=== PATIENT | male | born 1985 | race Hispanic/Latino ===

== ENCOUNTER → 2023-09-10 | Emergency (ER) | payer SELFPAY ==
[~2023-09-10] MED LIST: CALCIUM GLUCONATE 1 GM IVPB 1 GM/50 ML BAG IV ONE; D50W 25 GM/50 ML SYRINGE IV ONE; D5W 1,000 ML with NA BICARB 8.4% 150 MEQ IV SCH; INSULIN REGULAR (HUMAN) 100 UNIT/ML ONE; NA CHLORIDE 0.9% 1,000 ML ONE; NA CHLORIDE 0.9% 250 ML ONE; ONDANSETRON 4 MG/2 ML VIAL ONE; PANTOPRAZOLE 40 MG INJ ONE; SODIUM BICARB 50 MEQ/50ML VIAL ONE
--- NOTE | 2023-09-10 14:24 | RAD REPORT ---
EXAM DESCRIPTION: Clive Single View09/10/2023 1:32 pm CLINICAL HISTORY: Shortness of breath COMPARISON: none FINDINGS: The lungs appear clear of acute infiltrate. The heart may be mildly enlarged IMPRESSION: No acute abnormalities displayed
[2023-09-10 14:39] LABS: Absolute Lymphocytes (CBC) 1.2 K/uL (0.7-4.9); MPV 8.8 fL (7.6-11.3); Platelets 192 thou/uL (152-406); RBC Red Blood Cell Count 1.76 M/uL (4.33-5.43)
--- NOTE | 2023-09-10 14:49 | ER ---
Nurse's Notes [facility] Name: Idris Rivera Age: 38 yrs Sex: Male : 1985 Arrival Date: 09/10/2023 Time: 12:52 Bed 4 Private MD: Diagnosis: GI Bleed/ Gastrointestinal hemorrhage, unspecified;Acute kidney failure, unspecified;Metabolic acidosis;Hyperkalemia;Hypocalcemia Presentation: 09/10 13:01 Chief complaint: Patient states: 1 WK MALAISE AND FEVER. Coronavirus screen: At this bp time, the client does not indicate any symptoms associated with coronavirus-19. Ebola Screen: No symptoms or risks identified at this time. Initial Sepsis Screen: Does the patient meet any 2 criteria? No. Patient's initial sepsis screen is negative. Does the patient have a suspected source of infection? No. Patient's initial sepsis screen is negative. Risk Assessment: Do you want to hurt yourself or someone else? Patient reports no desire to harm self or others. Onset of symptoms is unknown. 13:01 Method Of Arrival: Wheelchair bp 13:01 Acuity: MARIELLE 3 bp 14:58 Acuity: MARIELLE 2 iw Historical: - Allergies: 13:02 Tylenol; bp - Home Meds: 13:02 Metformin Oral [Active]; Glipizide Oral [Active]; bp - PMHx: 13:02 Diabetes mellitus; bp - Immunization history:: Adult Immunizations up to date. - Social history:: Smoking status: Patient denies any tobacco usage or history of. Screenin:09 [facility] ED Fall Risk Assessment (Adult) History of falling in the last 3 months, ld1 including since admission No falls in past 3 months (0 pts). Abuse screen: Denies threats or abuse. Denies injuries from another. Nutritional screening: No deficits noted. Tuberculosis screening: No symptoms or risk factors identified. Assessment: 14:09 General: Appears in no apparent distress. comfortable, Behavior is cooperative, ld1 anxious. Pain: Complains of pain in back and right arm Pain does not radiate. Pain currently is 8 out of 10 on a pain scale. Quality of pain is described as sharp, throbbing, Pain began 1 week. Neuro: Level of Consciousness is awake, alert, obeys commands, Oriented to person, place, time, situation. Cardiovascular: Capillary refill < 3 seconds Patient's skin is warm and dry. Respiratory: Airway is patent Respiratory effort is even, unlabored. GI: Abdomen is round non-distended. : No signs and/or symptoms were reported regarding the genitourinary system. EENT: No signs and/or symptoms were reported regarding the EENT system. Derm: No signs and/or symptoms reported regarding the dermatologic system. Musculoskeletal: No signs and/or symptoms reported regarding the musculoskeletal system. 14:59 Reassessment: Patient appears in no apparent distress at this time. SHARI Puga at iw bedside to update pt and family of POC. 15:45 Reassessment: pt arrived back to ER bed 4 , pt appears anxious, pale diaphoretic, pt iw placed no monitor, second IV started, meds given as ordered, pt placed in gown, warm blankets given, pt appears more relaxed after approx 20 minutes, pt remains on NRB, awaiting acceptance for transfer , mother at bedside. 16:26 Reassessment: Patient appears in no apparent distress at this time. pt on BiPAP, iw updated on POC, still pending acceptance to higher level care facility. 17:38 Reassessment: blood transfusion complete. iw 18:05 Reassessment: pt sitting up in bed, remains on BiPAP, repeat labs sent to lab. iw 18:25 Reassessment: attempt to call report to nurse willi Meza, will call back iw in five minutes. 09/11 04:55 Reassessment: Notified Marbin Meza RN of anaerobic was +gram cocci in pf1 chains. Vital Signs: 09/10 13:01 BP 117 / 77; Pulse 83; Resp 20; Temp 97.7; Pulse Ox 99% ; Weight 99.79 kg; Height 5 ft. bp 9 in. ; 14:09 BP 140 / 63; Pulse 79; Resp 18; Pulse Ox 100% on R/A; Pain 8/10; ld1 15:44 BP 134 / 88; Pulse 81; Resp 18 S; Pulse Ox 100% on Non-rebreather mask; iw 16:35 BP 140 / 77; Pulse 79; Resp 16 S; Pulse Ox 100% on BiPAP; iw 18:07 BP 174 / 85; Pulse 80; Resp 16 S; Pulse Ox 100% on BiPAP; iw 13:01 Body Mass Index 32.49 (99.79 kg, 175.26 cm) bp 14:09 Pain Scale: Adult ld1 ED Course: 12:57 Patient arrived in ED. ts1 13:02 Triage completed. bp 13:02 Arm band placed on. bp 13:07 Vivien Talley FNP is PHCP. jh7 13:07 David Arias MD is Attending Physician. jh7 13:34 XRAY Chest (1 view) In Process Unspecified. EDMS 14:08 Es Emmanuel, SHONDA is Primary Nurse. ld1 14:08 Flu Sent. ld1 14:08 SARS RAPID Sent. ld1 14:08 Basic Metabolic Panel Sent. ld1 14:08 CBC with Diff Sent. ld1 14:08 Troponin HS Sent. ld1 14:09 Patient has correct armband on for positive identification. Placed in gown. Bed in low ld1 position. Call light in reach. Side rails up X2. diaper folder on. Pulse ox on. NIBP on. Door closed. Noise minimized. Warm blanket given. 14:09 Lipase Sent. ld1 14:09 No provider procedures requiring assistance completed. Inserted saline lock: 20 gauge ld1 in right antecubital area, using aseptic technique. Blood collected. 15:29 initiated a transfer with SONNY Stern from the [facility] Transfer [facility]/ they will have eb to decline all [facility] are at ICU saturation. 15:31 initiated a transfer with Mary Hart from the [facility] transfer center/ per Mary [facility] will eb have to decline all four [facility] campuses are at ICU Saturation. 15:38 Blood Culture Adult (2) Sent. ld1 15:38 Lactate w/ 2H reflex if indic. Sent. ld1 15:51 initiated a transfer with Kendy from the [facility] transfer center. eb 16:20 per Kendy [facility] will have to decline they are at capacity. eb 17:03 [facility] due to being at [facility]. eb 17:06 initiated a transfer with Sofia from the [facility] transfer center/. eb 17:21 per Kendy [facility] will have to decline due to being at capacity. eb 18:08 administrative approval given by Dortohy Ghosh / patient has been accepted to [facility] ICU room ICU 09/ Dr. Juan Chapa has accepted the patient transfer / report to be called to [phone]. 19:03 Patient transferred, IV remains in place. ld1 Administered Medications: 14:08 Drug: NS 0.9% IV 1000 ml IV at 1 bolus Per protocol; 1000 mL bolus Route: IV; Rate: 1 ld1 bolus; Site: right antecubital; 14:08 Drug: Ondansetron IVP 4 mg IVP once; over 2 minutes Route: IVP; Site: right antecubital;ld1 15:11 Not Given (Physician Discretion): ativan1 mg IVP once [facility] 15:25 Drug: D50W IVP 50 ml IVP once; (1 amp) Route: IVP; Site: right antecubital; ld1 15:25 Drug: Sodium Bicarbonate IVP 1 amp IVP once; (50 mL); equals 50 mEq Route: IVP; Site: ld1 right antecubital; 15:38 Drug: Calcium Gluconate IVPB 1 grams IVPB once over 60 mins; (mix in NS 100 mL) Route: ld1 IVPB; Infused Over: 60 mins; Site: left antecubital; 15:39 Drug: Pantoprazole IVP 40 mg IVP once Route: IVP; Site: left antecubital; ld1 15:39 Drug: Pantoprazole IV 8 mg/hr IV at 25 ml/hr continuous; (Standard dilution is 80 mg in ld1 250 mL NS) Route: IV; Rate: 25 ml/hr; Site: left antecubital; 15:39 Drug: NS 0.9% IV 1000 ml IV at 1 bolus Per protocol; 1000 mL bolus Route: IV; Rate: 1 ld1 bolus; Site: left antecubital; 15:39 Drug: Insulin Regular Human IVP 5 units IVP once {Co-Signature: iw (Padmini Mejia1 RN).} Route: IVP; Site: left antecubital; Medication: 14:09 VIS not applicable for this client. ld1 Outcome: 14:48 ER care complete, transfer ordered by MD. brown 19:02 Transferred by ground EMS ld1 19:02 Condition: unchanged 19:02 Instructed on the need for transfer, 19:03 Patient left the ED. ld1 Signatures: Dispatcher [employer] EDMS Padmini Mejia, SHONDA MERCHANT iw Carlos Bahena RN RN bp Melissa Olson Lauren, RN RN ld1 Vivien Talley, BRASS RECLAIMER BRASS RECLAIMER jh7 Agustina Cosby RN RN pf1 Erinn Rodriguez, BEL PAS ts1 Padmini Mejia RN iw Corrections: (The following items were deleted from the chart) 13:04 13:01 BP 117 / 77; Pulse 83bpm; Resp 20bpm; Pulse Ox 99%; Temp 97.7F; bp bp
--- NOTE | 2023-09-10 14:49 | EDPHYS ---
Physician Documentation [facility] Name: Idris Rivera Age: 38 yrs Sex: Male : 1985 Arrival Date: 09/10/2023 Time: 12:52 Bed 4 Private MD: ED Physician David Arias HPI: 09/10 13:01 This 38 yrs old Male presents to ER via Wheelchair with complaints of body jh7 aches, malaise, leg cramp/weakness. 13:01 Onset: The symptoms/episode began/occurred 1 week(s) ago. Associated signs and jh7 symptoms: Pertinent positives: fever, vomiting, Pertinent negatives: abdominal pain, chest pain, cough. 38-year-old male presents with malaise, body aches, leg weakness/cramping, and subjective fever for the past week. He denies cough, but reports mild shortness of breath. History of diabetes.. Historical: - Allergies: 13:02 Tylenol; bp - Home Meds: 13:02 Metformin Oral [Active]; Glipizide Oral [Active]; bp - PMHx: 13:02 Diabetes mellitus; bp - Immunization history:: Adult Immunizations up to date. - Social history:: Smoking status: Patient denies any tobacco usage or history of. ROS: 13:01 Eyes: Negative for injury, pain, redness, and discharge, ENT: Negative for injury, jh7 pain, and discharge, Neck: Negative for injury, pain, and swelling, Cardiovascular: Negative for chest pain, palpitations, and edema, Abdomen/GI: Negative for abdominal pain, nausea, vomiting, diarrhea, and constipation, Back: Negative for injury and pain, Skin: Negative for injury, rash, and discoloration, Neuro: Negative for headache, weakness, numbness, tingling, and seizure, 13:01 Constitutional: Positive for body aches, chills, fever, malaise, 13:01 Respiratory: Positive for shortness of breath, Negative for cough, wheezing, 13: MS/extremity: Positive for muscle cramps, 13:01 All other systems are negative, Exam: 13:01 Head/Face: Normocephalic, atraumatic. Eyes: Pupils equal round and reactive to light, jh7 extra-ocular motions intact. Lids and lashes normal. Conjunctiva and sclera are non-icteric and not injected. Cornea within normal limits. Periorbital areas with no swelling, redness, or edema. Neck: Trachea midline, no thyromegaly or masses palpated, and no cervical lymphadenopathy. Supple, full range of motion without nuchal rigidity, or vertebral point tenderness. No Meningismus. Cardiovascular: Regular rate and rhythm with a normal S1 and S2. No gallops, murmurs, or rubs. Normal PMI, no JVD. No pulse deficits. Respiratory: Lungs have equal breath sounds bilaterally, clear to auscultation and percussion. No rales, rhonchi or wheezes noted. No increased work of breathing, no retractions or nasal flaring. Back: No spinal tenderness. No costovertebral tenderness. Full range of motion. Skin: Warm, dry with normal turgor. Normal color with no rashes, no lesions, and no evidence of cellulitis. MS/ Extremity: Pulses equal, no cyanosis. Neurovascular intact. Full, normal range of motion. Neuro: Awake and alert, GCS 15, oriented to person, place, time, and situation. Motor strength 5/5 in all extremities. Sensory grossly intact. Normal gait. 13:01 Constitutional: The patient appears alert, awake, obviously ill, 15:40 Abdomen/GI: Rectal exam: Stool: Unable to obtain stool sample, [facility] Vital Signs: 13:01 BP 117 / 77; Pulse 83; Resp 20; Temp 97.7; Pulse Ox 99% ; Weight 99.79 kg; Height 5 ft. bp 9 in. ; 14:09 BP 140 / 63; Pulse 79; Resp 18; Pulse Ox 100% on R/A; Pain 8/10; ld1 15:44 BP 134 / 88; Pulse 81; Resp 18 S; Pulse Ox 100% on Non-rebreather mask; iw 16:35 BP 140 / 77; Pulse 79; Resp 16 S; Pulse Ox 100% on BiPAP; iw 18:07 BP 174 / 85; Pulse 80; Resp 16 S; Pulse Ox 100% on BiPAP; iw 13:01 Body Mass Index 32.49 (99.79 kg, 175.26 cm) bp 14:09 Pain Scale: Adult ld1 MDM: 13:07 Patient medically screened. [facility] 15:00 ED course: Notified by CT that the patient would not sit still and could not tolerate jh7 lying down on the CT table. Unable to obtain CT scan.. 15:55 ED course: Patient anxious and complaining that he cannot breathe. Will start on BiPAP jh7 and reevaluate.. 16:40 ED course: Patient significantly improved after BiPAP. Patient is no longer tachypneic jh7 or anxious. Skin complexion has also improved after PRBC administration. Melissa ED meat and seafood clerk, notified me that all of the [facility] facilities, all [facility] facilities, and [facility] and [facility] are at ICU capacity. Will try [facility].. 17:45 Differential diagnosis: GI bleed, influenza, sepsis, acute renal failure, diabetic jh7 ketoacidosis, metabolic acidosis, rhabdomyolysis, dehydration. Data reviewed: vital signs, nurses notes, lab test result(s), EKG, radiologic studies, plain films. Consideration of Admission/Observation Patient will be transferred for higher level of care.. Management of patient was discussed with the following: Warp Spinner: GI, nephrology, and flux core welder at [facility]. Requested repeat of CBC and CMP before transport. The patient was accepted into their ICU.. I considered the following discharge prescriptions or medication management in the emergency department Medications were administered in the Emergency Department. See MAR. Independent interpretation of the following test(s) in the Emergency Department EKG: See my EKG interpretation above. Historians other than the Patient: Parent: mom. Care significantly affected by the following chronic conditions: Diabetes. Counseling: I had a detailed discussion with the patient and/or guardian regarding the historical points, exam findings, and any diagnostic results supporting the discharge/admit diagnosis, the need to transfer to another facility, for higher level of care, [facility] does not immediately have the required specialist. Response to treatment: the patient's symptoms have markedly improved after treatment. 09/10 14:42 Order name: Type And Screen [facility] 09/10 13:12 Order name: Basic Metabolic Panel; Complete Time: 14:59 7 09/10 13:12 Order name: CBC with Diff; Complete Time: 16:42 [facility] 09/10 13:12 Order name: Troponin HS; Complete Time: 14:59 [facility] 09/10 13:12 Order name: Lipase; Complete Time: 14:59 [facility] 09/10 13:12 Order name: SARS RAPID; Complete Time: 14:59 [facility] 09/10 13:12 Order name: Flu; Complete Time: 14:59 [facility] 09/10 14:14 Order name: CK; Complete Time: 17:20 [facility] 09/10 14:42 Order name: PT-INR; Complete Time: 15:40 [facility] 09/10 15:00 Order name: ABG: VBG; Complete Time: 17:20 [facility] 09/10 15:03 Order name: Lactate w/ 2H reflex if indic.; Complete Time: 16:42 [facility] 09/10 15:05 Order name: Blood Culture Adult (2) [facility] 09/10 15:08 Order name: Packed RBC Leukored [facility] 09/10 15:14 Order name: CBC Smear Scan; Complete Time: 16:42 [facility] 09/10 17:43 Order name: CMP; Complete Time: 18:54 [facility] 09/10 17:43 Order name: CBC with Diff; Complete Time: 18:17 [facility] 09/10 13:12 Order name: XRAY Chest (1 view); Complete Time: 14:35 [facility] 09/10 16:00 Order name: BIPAP [facility] 09/10 13:12 Order name: EKG; Complete Time: 13:13 [facility] 09/10 19:01 Order name: EKG; Complete Time: 19:02 09/10 13:12 Order name: Cardiac monitoring; Complete Time: 14:08 [facility] 09/10 13:12 Order name: EKG - Nurse/Tech; Complete Time: 14:08 [facility] 09/10 13:12 Order name: IV Saline Lock; Complete Time: 14:08 [facility] 09/10 13:12 Order name: Labs collected and sent; Complete Time: 14:08 [facility] 09/10 13:12 Order name: O2 Per Protocol; Complete Time: 13:55 [facility] 09/10 13:12 Order name: O2 Sat Monitoring; Complete Time: 13:55 [facility] 09/10 14:29 Order name: Labs - recollect needed: LABS RECOLLECT GREEN TOP AND LAVENDER; Complete eb Time: 14:42 09/10 14:45 Order name: Transfuse; Complete Time: 16:04 [facility] 09/10 19:01 Order name: EKG - Nurse/Tech 09/10 19:01 Order name: IV Saline Lock iw 09/10 19: Order name: Labs collected and sent iw 09/10 19: Order name: Suicide Screening ([place]) EC:03 Rate is 81 beats/min. Rhythm is regular. QRS Thomson is Normal. NE interval is normal at jh7 212 msec. QRS interval is normal at 110 msec. QT interval is normal at 420 msec. No Q waves. T waves are Normal. No ST changes noted. Clinical impression: 1st degree heart block. Administered Medications: 14:08 Drug: NS 0.9% IV 1000 ml IV at 1 bolus Per protocol; 1000 mL bolus Route: IV; Rate: 1 ld1 bolus; Site: right antecubital; 14:08 Drug: Ondansetron IVP 4 mg IVP once; over 2 minutes Route: IVP; Site: right antecubital;ld1 15:11 Not Given (Physician Discretion): ativan1 mg IVP once jh7 15:25 Drug: D50W IVP 50 ml IVP once; (1 amp) Route: IVP; Site: right antecubital; ld1 15:25 Drug: Sodium Bicarbonate IVP 1 amp IVP once; (50 mL); equals 50 mEq Route: IVP; Site: ld1 right antecubital; 15:38 Drug: Calcium Gluconate IVPB 1 grams IVPB once over 60 mins; (mix in NS 100 mL) Route: ld1 IVPB; Infused Over: 60 mins; Site: left antecubital; 15:39 Drug: Pantoprazole IVP 40 mg IVP once Route: IVP; Site: left antecubital; ld1 15:39 Drug: Pantoprazole IV 8 mg/hr IV at 25 ml/hr continuous; (Standard dilution is 80 mg in ld1 250 mL NS) Route: IV; Rate: 25 ml/hr; Site: left antecubital; 15:39 Drug: NS 0.9% IV 1000 ml IV at 1 bolus Per protocol; 1000 mL bolus Route: IV; Rate: 1 ld1 bolus; Site: left antecubital; 15:39 Drug: Insulin Regular Human IVP 5 units IVP once {Co-Signature: (Padmini Mejia ld1 RN).} Route: IVP; Site: left antecubital; Disposition: 09/11 06:58 Co-signature as Attending Physician, David Arias MD I reviewed the patient's care rn provided by the Advanced Practice Provider and agree with the diagnosis and treatment plan. Disposition Summary: 09/10/23 14:48 Transfer Ordered Notes: Reason: Higher level of care jh7 Condition: Serious jh7 Problem: new jh7 Symptoms: have worsened jh7 Transfer Location: Other Acute Care Facility(09/10/23 18:15) [facility] Accepting Physician: Dr. Chapa(09/10/23 19:03) ld1 Diagnosis - GI Bleed/ Gastrointestinal hemorrhage, unspecified jh7 - Acute kidney failure, unspecified jh7 - Metabolic acidosis jh7 - Hyperkalemia jh7 - Hypocalcemia jh7 Forms: - Medication Reconciliation Form jh7 - SBAR form [facility] Signatures: Dispatcher [employer] EDPadmini Patel, RN SHONDA iw David Arias MD MD rn Peltier, Brian RN Melissa Powell Lauren, RN RN ld1 Vivien Talley, ACCOUNTING PROFESSOR ACCOUNTING PROFESSOR Padmini Schaffer RN Corrections: (The following items were deleted from the chart) 09/10 14:15 13:01 This 38 yrs old Male presents to ER via Wheelchair with complaints of jh7 General Weakness. jh7 15:06 14:48 Accepting MD brown [facility] 16:23 14:45 Abdomen Pelvis W Con+CT.RAD.BRZ ordered. EDWV EDMS 18:15 14:48 [place] [id number] 18:15 15:06 Accepting MD brown [facility] 18:17 18:15 Accepting MD brown [place] 18:18 17:45 Management of patient was discussed with the following: Warp Spinner: GI, stephanie nephrology, and flux core welder at [facility]. Requested repeat of CBC and CMP before transport.. [facility] 19:03 18:17 Dr. Chapa 7 ld1
[2023-09-10 14:50] LABS: Troponin High Sensitivity 58.7 pg/mL (<58.9)
[2023-09-10 14:51] LABS: SARS-CoV-2 Antigen Rapid Res Negative (Negative)
[2023-09-10 14:54] LABS: Potassium 7.7 mEq/L (3.5-5.1)
[2023-09-10 15:07] LABS: Protime INR 1.34
[2023-09-10 15:13] LABS: Blood Morphology Comment NOTED (NOT SEEN); White Blood Cell Scan OK (OK)
[2023-09-10 15:14] LABS: ACANTHOCYTE 1+
[2023-09-10 16:12] LABS: Platelet Estimate ADEQ
[2023-09-10 17:18] LABS: Blood O2 Saturation 98.1 % (92-98.5)
[2023-09-10 18:08] LABS: Absolute Lymphocytes (CBC) 0.9 K/uL (0.7-4.9); Hematocrit 18.2 % (39.6-49.0); Lymphocytes % 9.3 % (15.3-44.8); MCV 91.3 fL (80-100); MPV 8.7 fL (7.6-11.3); Platelets 191 thou/uL (152-406); RBC Red Blood Cell Count 1.99 M/uL (4.33-5.43)
[2023-09-10 18:38] LABS: Albumin 2.8 g/dL (3.4-5.0); Bilirubin Total 1.3 mg/dL (0.2-1.0); Potassium 7.5 mEq/L (3.5-5.1); Protein, Total 7.2 g/dL (6.4-8.2)
[2023-09-10 19:27] VITALS: BP 174/85; TEMP 97.7; O2SAT 100
== END ==
LOC: ER 12:52
PROC: 30233N1 Transfusion of Nonautologous Red Blood Cells into Peripheral Vein, Percutaneous Approach (ICD-10-PCS; principal; 2023-09-10)
DX: K92.2 Gastrointestinal hemorrhage, unspecified (principal); N17.9 Acute kidney failure, unspecified; E87.20 Acidosis, unspecified; E87.5 Hyperkalemia; E83.51 Hypocalcemia; E11.9 Type 2 diabetes mellitus without complications
CPT/HCPCS: 36415; 36600; 71045; 80048; 80053; 82550; 82805; 83605; 83690; 84484; 85025; 85610; 86850; 86900; 86901; 86920; 87040; 87077; 87186; 87205; 87804; 87811; 93005; 94660; 99285; C9113; J0612; J1815; J2405; J7030; J7050; P9016

== ENCOUNTER 2024-05-21 16:19 | Emergency (ER) | payer OTHER ==
--- NOTE | 2024-05-21 17:31 | RAD REPORT ---
EXAM DESCRIPTION: Clive Single View05/21/2024 5:23 pm CLINICAL HISTORY: Shortness of breath COMPARISON: 2020 FINDINGS: The lungs appear clear of acute infiltrate. The heart is moderately enlarged. Central venous catheter in place IMPRESSION: No acute abnormalities displayed
[2024-05-21 17:37] LABS: Absolute Eosinophils 0.1 K/uL (0-0.5); Absolute Lymphocytes (CBC) 0.6 K/uL (0.7-4.9); Absolute Monocytes 0.4 K/uL (0.1-1.3); Absolute Neutrophil 5.6 K/uL (1.8-8.0); Basophils % 0.5 % (0-1.3); Hematocrit 19.1 % (39.6-49.0); Lymphocytes % 8.5 % (15.3-44.8); MCH 30.8 pg (27.0-35.0); MCHC 31.1 g/dL (32.0-36.0); MCV 99.2 fL (80-100); MPV 8.1 fL (7.6-11.3); Monocytes % 5.9 % (3.3-12.3); Neutrophils % 84.1 % (41.7-73.7); Nucleated Red Blood Cells % 0.1 % (0-0); Platelets 169 thou/uL (152-406); RBC Red Blood Cell Count 1.92 M/uL (4.33-5.43); Red Cell Distribution Width 15.5 % (12.1-15.2)
[2024-05-21 17:50] LABS: Hemoglobin 5.9 g/dL (13.6-17.9)
[2024-05-21 17:53] LABS: PT Prothrombin Time 12.9 SECONDS (9.4-12.5); PTT, Activated Partial Thromb 33.3 SECONDS (24.3-36.9); Protime INR 1.16
[2024-05-21 18:01] LABS: ALT/SGPT 28 U/L (16-61); AST/SGOT 20 U/L (15-37); Albumin/Globulin Ratio 0.6 (1.1-1.8); Alkaline Phosphatase 95 U/L (45-117); BUN Blood Urea Nitrogen 93 mg/dL (7-18); Bicarbonate 10 mEq/L (21-32); Bilirubin Total 0.3 mg/dL (0.2-1.0); Globulin 4.9 g/dL (2.3-3.5); Glomerular Filtration Rate 4 ml/min (=/>90); Glucose Level 85 mg/dL (74-106); Magnesium 2.3 mg/dL (1.6-2.4); NT PRO-BNP 53661 pg/mL (<125); Protein, Total 7.9 g/dL (6.4-8.2); Sodium Level 136 mEq/L (136-145)
[2024-05-21 18:05] LABS: Bilirubin Direct < 0.2 mg/dL (0-0.2); Bilirubin Indirect, Calculated 0.1 mg/dL (0.2-0.8)
[2024-05-21] MEDS ORDERED: SODIUM BICARB 50 MEQ/50ML VIAL ONE (18:36)
[2024-05-21] MEDS ORDERED: Calcium Chloride 10% INJ SYR IV ONE (18:36)
[2024-05-21] MEDS ORDERED: SOD POLYSTYREN SUL 15 GM/60 ML UCUP ONE (18:37)
[2024-05-21] MEDS ORDERED: CALCIUM GLUCONATE 1 GM IVPB 1 GM/50 ML BAG IV ONE (18:40)
--- NOTE | 2024-05-21 18:49 | ER ---
Nurse's Notes [facility] Name: Idris Rivera Age: 39 yrs Sex: Male : 1985 Arrival Date: 05/21/2024 Time: 16:19 Bed 8 Private MD: Diagnosis: Anemia in other chronic diseases classified elsewhere;Unspecified kidney failure;Hyperkalemia Presentation: 05/21 16:34 Chief complaint: Patient states: Sent from the clinic for low HGB of 5.7. Pt noted to cm10 be pale and have shortness of breath. Coronavirus screen: Client denies travel out of the [place] in the last 14 days. At this time, the client does not indicate any symptoms associated with coronavirus-19. Ebola Screen: Patient denies travel to an Ebola-affected area in the 21 days before illness onset. No symptoms or risks identified at this time. Initial Sepsis Screen: Does the patient meet any 2 criteria? No. Patient's initial sepsis screen is negative. Does the patient have a suspected source of infection? No. Patient's initial sepsis screen is negative. Risk Assessment: Do you want to hurt yourself or someone else? Patient reports no desire to harm self or others. Onset of symptoms was May 21, 2024. 16:34 Method Of Arrival: Ambulatory cm10 16:34 Acuity: MARIELLE 2 cm10 Triage Assessment: 16:37 General: Appears in no apparent distress. uncomfortable, Behavior is calm, cooperative, cm10 appropriate for age. Neuro: No deficits noted. Level of Consciousness is awake, alert, obeys commands, Oriented to person, place, time, situation, Appropriate for age. Derm: Skin is pale. Historical: - Allergies: 16:37 Tylenol; cm10 - PMHx: 16:37 diabetes mellitus; cm10 - Immunization history:: Adult Immunizations up to date. - Infectious Disease History:: Denies. - Social history:: Smoking status: Patient denies any tobacco usage or history of. Screenin:40 [facility] ED Fall Risk Assessment (Adult) History of falling in the last 3 months, rs5 including since admission No falls in past 3 months (0 pts) Confusion or Disorientation No (0 pts) Intoxicated or Sedated No (0 pts) Impaired Gait No (0 pts) Mobility Assist Device Used No (0 pt) Altered Elimination No (0 pt) Score/Fall Risk Level 0 - 2 = Low Risk Oriented to surroundings, Maintained a safe environment. [facility] ED Fall Risk Assessment (Adult) History of falling in the last 3 months, including since admission. Abuse screen: Denies threats or abuse. Nutritional screening: No deficits noted. Tuberculosis screening: No symptoms or risk factors identified. Assessment: 16:40 General: Appears uncomfortable, Behavior is cooperative, anxious. Pain: Denies pain. rs5 Neuro: Level of Consciousness is awake, alert, obeys commands, Oriented to person, place, time, situation. Cardiovascular: Patient's skin is warm and dry. Respiratory: Reports shortness of breath Airway is patent Respiratory effort is even, unlabored, Respiratory pattern is regular, symmetrical. GI: Abdomen is round non-distended, Abd is soft and non tender X 4 quads. : No signs and/or symptoms were reported regarding the genitourinary system. EENT: No signs and/or symptoms were reported regarding the EENT system. Derm: Skin is intact, Skin is dry, Skin is pale, Skin temperature is cool. Musculoskeletal: Range of motion: intact in all extremities. 17:55 Reassessment: Patient and/or family updated on plan of care and expected duration. Pain rs5 level reassessed. Patient is alert, oriented x 3, equal unlabored respirations, skin warm/dry/pink. 18:53 Reassessment: No changes from previously documented assessment. rs5 20:00 Reassessment: Patient appears in no apparent distress at this time. Patient and/or jb4 family updated on plan of care and expected duration. Pain level reassessed. Patient is alert, oriented x 3, equal unlabored respirations, skin warm/dry/pink. 20:57 Reassessment: Patient appears in no apparent distress at this time. Patient and/or jb4 family updated on plan of care and expected duration. Pain level reassessed. Patient is alert, oriented x 3, equal unlabored respirations, skin warm/dry/pink. Patient states feeling better. 21:08 Reassessment: Blood transfusion continued with EMS. No s/s of transfusion reaction jb4 noted. 21:51 Reassessment: Report given to SHONDA Cotton. jb4 Vital Signs: 16:34 BP 139 / 85; Pulse 77; Resp 18; Temp 96.6(IR); Pulse Ox 99% on R/A; Weight 90.72 kg; cm10 Height 5 ft. 10 in. ; Pain 0/10; 18:01 BP 133 / 73; Pulse 79; Resp 19; Pulse Ox 99% on R/A; rs5 18:54 BP 135 / 78; Pulse 82; Resp 19; Pulse Ox 99% on R/A; rs5 19:36 BP 122 / 72; Pulse 93; Resp 16; Pulse Ox 100% on R/A; jb4 20:45 BP 126 / 70; Pulse 107; Resp 16; Temp 97.1(TE); Pulse Ox 100% on R/A; Pain 0/10; jb4 16:34 Body Mass Index 28.70 (90.72 kg, 177.8 cm) cm10 16:34 Pain Scale: Adult cm10 20:45 Pain Scale: Adult jb4 ED Course: 16:21 Patient arrived in ED. jj6 16:23 Kevin Serrano PA is PHCP. cp 16:24 Bill Pennington MD is Attending Physician. cp 16:37 Triage completed. cm10 16:37 Arm band placed on Patient placed in an exam room, on a stretcher. cm10 16:40 Patient has correct armband on for positive identification. Placed in gown. Bed in low rs5 position. Call light in reach. Side rails up X2. 16:40 No provider procedures requiring assistance completed. rs5 17:18 MICHELLE DA SILVA, RN is Primary Nurse. dd2 17:25 XRAY Chest (1 view) In Process Unspecified. EDMS 17:34 Initial lab(s) drawn, by pr, sent to lab. Inserted saline lock: 18 gauge in left zm antecubital area, using aseptic technique. Blood collected. Flushed with 10 mL NS. 17:35 Basic Metabolic Panel Sent. zm 17:35 CBC with Diff Sent. zm 17:35 LFT's Sent. zm 17:35 Magnesium Sent. zm 17:35 NT PRO-BNP Sent. zm 17:35 PT-INR Sent. zm 17:35 Troponin HS Sent. zm 17:35 Ptt, Activated Sent. zm 17:35 Type And Screen Sent. zm 17:35 EKG done, by ED staff, reviewed by Kevin PICKETT. zm 19:00 initiated transfer with Patsy Rosario \Kianna\ [facility]. kmf 20:17 pt was accepted to [facility] \T\ 2007. Patsy Rosario gave [facility] \T\ 2007 Dr. Katie Villalobos accepted km f 2007. Pt will go to room 208. number for nurse to report [phone]. [facility] to transfer pt once blood is started. 21:08 Provided Education on: need for transfer. jb4 21:09 Patient transferred, IV remains in place. jb4 Administered Medications: 18:55 Drug: Sodium Bicarbonate IVP 1 amp IVP once; (50 mL); equals 50 mEq Route: IVP; Site: rs5 right antecubital; 18:55 Drug: Calcium Gluconate IVPB 1 grams IVPB once over 60 mins; (mix in NS 100 mL) Route: rs5 IVPB; Infused Over: 60 mins; Site: left antecubital; 18:55 Drug: Kayexalate PO 30 grams PO once Route: PO; rs5 21:10 Follow up: Response: No adverse reaction jb4 19:45 Drug: Furosemide IVP 40 mg IVP once; give over 2 minutes Route: IVP; Site: left jb4 antecubital; 21:10 Follow up: Response: No adverse reaction jb4 19:46 Drug: D10 in Water IVP 250 ml IVP once Route: IVP; Site: left antecubital; jb4 21:10 Follow up: Response: No adverse reaction jb4 19:46 Drug: Albuterol Inhalation 2.5 mg Inhalation every 20 minutes x3 Route: Inhalation; jb4 19:46 Drug: Albuterol Inhalation 2.5 mg Inhalation every 20 minutes x3 Route: Inhalation; jb4 19:46 Drug: Albuterol Inhalation 2.5 mg Inhalation every 20 minutes x3 {Note: given all 3 at jb4 same time per providers instructions..} Route: Inhalation; 20:25 Drug: Insulin Regular Human IVP 5 units IVP once {Co-Signature: bm8 (Shashi Pratt RN).} Route: IVP; Site: right hand; 21:10 Follow up: Response: No adverse reaction jb4 Medication: 18:54 VIS not applicable for this client. rs5 Outcome: 18:48 ER care complete, transfer ordered by MD. vogel 21:08 Transferred by ground EMS to [facility], Transfer form completed. jb4 X-rays sent w/ patient. 21:08 Condition: stable 21:08 Discharge instructions given to patient, Instructed on the need for transfer, Demonstrated understanding of instructions, 21:12 Patient left the ED. jb4 Signatures: Dispatcher [employer] EDMS Kevin Serrano PA PA cp Bryson, James, RN RN jb4 Vivien Morton jj6 Leda Hastings Ricky RN RN rs5 Soledad Hastings RN RN cm10 Kaykay Powell DIANA, RN RN dd2 Shashi Pratt RN bm8
--- NOTE | 2024-05-21 18:49 | EDPHYS ---
Physician Documentation [facility] Name: Idris Rivera Age: 39 yrs Sex: Male : 1985 Arrival Date: 05/21/2024 Time: 16:19 Bed 8 Private MD: ED Physician Bill Pennington HPI: 05/21 16:40 This 39 yrs old Male presents to ER via Ambulatory with complaints of Abnormal cp Lab Results. 16:40 Patient presents to ED after being referred for low hemoglobin. Patient denies chest cp pain, denies abdominal pain, denies bloody of black stools. Reports HX kidney failure with last dialysis in [facility]. Historical: - Allergies: 16:37 Tylenol; cm10 - PMHx: 16:37 diabetes mellitus; cm10 - Immunization history:: Adult Immunizations up to date. - Infectious Disease History:: Denies. - Social history:: Smoking status: Patient denies any tobacco usage or history of. ROS: 16:45 Constitutional: Negative for body aches, chills, fever, poor PO intake, cp 16:45 Eyes: Negative for injury, pain, redness, and discharge, cp 16:45 Cardiovascular: Positive for edema, Negative for chest pain, palpitations, 16:45 Respiratory: Negative for cough, shortness of breath, wheezing, 16:45 Abdomen/GI: Negative for abdominal pain, vomiting, diarrhea, constipation, black/tarry stool, rectal bleeding, 16:45 : Negative for urinary symptoms, cp 16:45 Neuro: Negative for altered mental status, dizziness, headache, syncope, 16:45 All other systems are negative, cp Exam: 16:50 Constitutional: The patient appears in no acute distress, alert, awake, cp non-diaphoretic, non-toxic, well developed, well nourished, 16:50 Head/Face: Normocephalic, atraumatic. cp 16:50 Eyes: Periorbital structures: appear normal, Conjunctiva: normal, no exudate, no cp injection, Sclera: no appreciated abnormality, Lids and lashes: appear normal, bilaterally, 16:50 ENT: External ear(s): are unremarkable, Nose: is normal, Mouth: Lips: moist, Oral mucosa: moist, Posterior pharynx: Airway: no evidence of obstruction, patent, 16:50 Chest/axilla: Inspection: normal, 16:50 Cardiovascular: Rate: normal, Rhythm: regular, Edema: ankle edema, that is moderate, JVD: is not appreciated, 16:50 Respiratory: the patient does not display signs of respiratory distress, Respirations: normal, no use of accessory muscles, no retractions, labored breathing, is not present, Breath sounds: decreased breath sounds, that are mild, throughout, stridor, is not appreciated, 16:50 Back: CVA tenderness, is absent, 16:50 Skin: cellulitis, is not appreciated, no rash present. 16:50 Neuro: Orientation: to person, place \T\ time. Mentation: is normal, Cerebellar function: is grossly normal, Motor: moves all fours, strength is normal, Sensation: is normal, 17:33 ECG was reviewed by the Attending Physician. cp 17:58 Abdomen/GI: Rectal exam: Stool: brown, cp Vital Signs: 16:34 BP 139 / 85; Pulse 77; Resp 18; Temp 96.6(IR); Pulse Ox 99% on R/A; Weight 90.72 kg; cm10 Height 5 ft. 10 in. ; Pain 0/10; 18:01 BP 133 / 73; Pulse 79; Resp 19; Pulse Ox 99% on R/A; rs5 18:54 BP 135 / 78; Pulse 82; Resp 19; Pulse Ox 99% on R/A; rs5 19:36 BP 122 / 72; Pulse 93; Resp 16; Pulse Ox 100% on R/A; jb4 20:45 BP 126 / 70; Pulse 107; Resp 16; Temp 97.1(TE); Pulse Ox 100% on R/A; Pain 0/10; jb4 16:34 Body Mass Index 28.70 (90.72 kg, 177.8 cm) cm10 16:34 Pain Scale: Adult cm10 20:45 Pain Scale: Adult jb4 MDM: 16:39 Patient medically screened. cp 18:45 Data reviewed: vital signs, nurses notes, lab test result(s), EKG, radiologic studies, cp plain films, and as a result, I will transfer patient. 18:45 Differential diagnosis: bronchitis, pneumonia chronic anemia, kidney failure, GI bleed. cp I considered the following discharge prescriptions or medication management in the emergency department Medications were administered in the Emergency Department. See MAR. Independent interpretation of the following test(s) in the Emergency Department EKG: See my EKG interpretation above. Care significantly affected by the following chronic conditions: Diabetes. Counseling: I had a detailed discussion with the patient and/or guardian regarding the historical points, exam findings, and any diagnostic results supporting the discharge/admit diagnosis, lab results, radiology results, the need to transfer to another facility, for ICU service. 05/21 16:38 Order name: Basic Metabolic Panel; Complete Time: 18:15 05/21 16:38 Order name: CBC with Diff; Complete Time: 17:58 05/21 17:58 Interpretation: Normal except: RBC 1.92; HGB 5.9; HCT 19.1; MCHC 31.1; RDW 15.5; OLIVIER% cp 84.1; LYM% 8.5; LYMA 0.6. 05/21 16:38 Order name: LFT's; Complete Time: 18:15 05/21 16:38 Order name: Magnesium; Complete Time: 18:15 05/21 16:38 Order name: NT PRO-BNP; Complete Time: 18:15 05/21 16:38 Order name: PT-INR; Complete Time: 17:58 05/21 16:38 Order name: Troponin HS; Complete Time: 18:15 05/21 16:38 Order name: Ptt, Activated; Complete Time: 17:58 05/21 16:38 Order name: Type And Screen 05/21 18:07 Order name: Bb Add On bd 05/21 18:15 Order name: Packed RBC Leukored [facility] 05/21 19:44 Order name: Glucose, Ancillary Testing; Complete Time: 19:57 [facility] 05/21 16:38 Order name: XRAY Chest (1 view); Complete Time: 17:58 05/21 16:38 Order name: EKG; Complete Time: 16:39 05/21 16:38 Order name: Cardiac monitoring; Complete Time: 17:34 05/21 16:38 Order name: EKG - Nurse/Tech; Complete Time: 17:34 05/21 16:38 Order name: IV Saline Lock; Complete Time: 17:34 05/21 16:38 Order name: Labs collected and sent; Complete Time: 17:34 05/21 16:38 Order name: O2 Per Protocol; Complete Time: 17:35 cp 09 16:38 Order name: O2 Sat Monitoring; Complete Time: 17:35 cp 05/21 18:31 Order name: Transfuse; Complete Time: 21:11 cp EC:33 Rate is 78 beats/min. Rhythm is regular. [place] interval is normal. QRS interval is normal. cp QT interval is normal. T waves are Inverted in lead aVR. Interpreted by me. Reviewed by me. Administered Medications: 18:55 Drug: Sodium Bicarbonate IVP 1 amp IVP once; (50 mL); equals 50 mEq Route: IVP; Site: rs5 right antecubital; 18:55 Drug: Calcium Gluconate IVPB 1 grams IVPB once over 60 mins; (mix in NS 100 mL) Route: rs5 IVPB; Infused Over: 60 mins; Site: left antecubital; 18:55 Drug: Kayexalate PO 30 grams PO once Route: PO; rs5 21:10 Follow up: Response: No adverse reaction jb4 19:45 Drug: Furosemide IVP 40 mg IVP once; give over 2 minutes Route: IVP; Site: left jb4 antecubital; 21:10 Follow up: Response: No adverse reaction jb4 19:46 Drug: D10 in Water IVP 250 ml IVP once Route: IVP; Site: left antecubital; jb4 21:10 Follow up: Response: No adverse reaction jb4 19:46 Drug: Albuterol Inhalation 2.5 mg Inhalation every 20 minutes x3 Route: Inhalation; jb4 19:46 Drug: Albuterol Inhalation 2.5 mg Inhalation every 20 minutes x3 Route: Inhalation; jb4 19:46 Drug: Albuterol Inhalation 2.5 mg Inhalation every 20 minutes x3 {Note: given all 3 at jb4 same time per providers instructions..} Route: Inhalation; 20:25 Drug: Insulin Regular Human IVP 5 units IVP once {Co-Signature: bm8 (Shashi Pratt RN).} Route: IVP; Site: right hand; 21:10 Follow up: Response: No adverse reaction jb4 Disposition Summary: 05/21/24 18:48 Transfer Ordered Notes: Transfer Location: [facility] cp Reason: Higher level of care cp Condition: Stable cp Problem: new cp Symptoms: have improved cp Accepting Physician: DR Wilson(05/21/24 21:12) jb4 Diagnosis - Anemia in other chronic diseases classified elsewhere cp - Unspecified kidney failure cp - Hyperkalemia cp Forms: - Medication Reconciliation Form cp - SBAR form cp Addendum: 05/24/2024 09:03 Co-signature as Attending Physician, Bill Pennington MD I reviewed the patient's care r t provided by the Advanced Practice Provider and agree with the diagnosis and treatment plan. Signatures: Dispatcher [employer] EDMS Kevin Serrano PA PA cp Dar Johnson RN RN jb4 Bill Pennington MD MD rt Raheel Smith RN RN rs5 Soledad Hastings RN RN cm10 Shashi Pratt RN bm8 Corrections: (The following items were deleted from the chart) 05/21 20:06 18:48 Doctor cp cp 21:12 20:06 DR Wilson cp jb4
[2024-05-21] MEDS ORDERED: ALBUTEROL 2.5 MG/3 ML NEB SOL ONE (19:23)
[2024-05-21] MEDS ORDERED: FUROSEMIDE 40 MG/4 ML VIAL ONE (19:23)
[2024-05-21] MEDS ORDERED: INSULIN REGULAR (HUMAN) 100 UNIT/ML ONE (19:24)
[2024-05-21] MEDS ORDERED: D10W 250 ML IV ONE (19:25)
[2024-05-21] MEDS ORDERED: NA CHLORIDE 0.9% 100 ML ONE (20:18)
[2024-05-21 22:13] VITALS: O2SAT 100
[2024-05-21 22:15] VITALS: BP 126/70; TEMP 97.1
--- NOTE | 2024-05-22 16:55 | EKG ---
Test Date: 2024-05-21 Test Time: 17:28:48 Rn Labor Delivery: CHRISSY MEASUREMENT RESULTS: Intervals: Rate: 78 ID: [id number] QRSD: 86 QT: 410 QTc: 467 [place]: P: 26 ID: [id number] QRS: 32 T: 23 INTERPRETIVE STATEMENTS: Normal sinus rhythm Normal ECG Compared to ECG 09/10/2023 14:03:59 First degree AV block no longer present Myocardial infarct finding no longer present Electronically Signed On 05-22-24 16:52:41 CDT by Luke Saldana
== END 2024-05-21 21:12 | disposition short-term general hospital (02) ==
LOC: ER 16:19
PROC: 30233N1 Transfusion of Nonautologous Red Blood Cells into Peripheral Vein, Percutaneous Approach (ICD-10-PCS; principal; 2024-05-21)
DX: N17.9 Acute kidney failure, unspecified (principal); D63.1 Anemia in chronic kidney disease; E87.5 Hyperkalemia; Z99.2 Dependence on renal dialysis
CPT/HCPCS: 93005; 85025; 80048; 36415; 86900; 83735; 86850; 85610; 86901; 82947; 80076; 85730; 86920 ×2; 84484; 83880; 71045; 99285; 36430; J0612; J1940; J7613; P9016